=== PATIENT | female | born 1940 | race Caucasian/White ===

== ENCOUNTER → 2025-06-10 09:50 | Outpatient (REF) | payer OTHER, SELFPAY | LOC: RAD 09:50 | PROVIDERS: ATTENDING PHYSICIAN Internal Medicine Cardiovascular Disease; FAMILY PHYSICIAN Internal Medicine | DX: E11.9 Type 2 diabetes mellitus without complications (principal); R94.31 Abnormal electrocardiogram [ECG] [EKG] | CPT/HCPCS: 75574; Q9967 ==

== ENCOUNTER 2025-06-21 09:54 | Day surgery (SDC) | payer OTHER, SELFPAY ==
[2025-06-17 08:54] VITALS: BMI 23.6
[2025-06-17 09:53] LABS: Hematocrit 35.0 % (37.0-47.0); Hemoglobin 11.7 g/dL (12.0-16.0); Mean Corp Hgb Conc. 33.4 g/dL (33.0-37.0); Mean Corpuscular Volume 87.9 fL (81.0-99.0); Nucleated Red Blood Cells % 0 %; Platelet Count 326 10^3/uL (130-400); Red Cell Dist. Width 14.3 % (11.5-14.5)
[2025-06-17 10:10] LABS: ALT (SGPT) 26 U/L (0-35); AST (SGOT) 18 U/L (14-36); Albumin 4.3 g/dl (3.5-5.0); Alkaline Phosphatase 58 U/L (38-126); Blood Urea Nitrogen 22 mg/dl (7-17); Calcium 10.2 mg/dl (8.4-10.2); Carbon Dioxide 18 mmol/L (22-30); Chloride 105 mmol/L (98-107); Estimated Creatinine Clearance 38 ml/min; Glucose 127 mg/dl (70-99); Potassium 4.7 mmol/L (3.5-5.1); Sodium 134 mmol/L (135-145); Total Protein 6.9 g/dl (6.3-8.2); eGFR > 60.00
[2025-06-21 10:25] VITALS: BP 139/73
[2025-06-21 10:41] LABS: Glucose - Point of Care 107 mg/dl (70-99)
[2025-06-21 10:43] VITALS: BMI 23.4
[2025-06-21] MEDS: NSS 174 ML IV (10:44)
[2025-06-21 14:32] VITALS: BP 128/81
--- NOTE | 2025-06-21 14:34 | ITS.CL.PN ---
[facility] - Procedure Note
Procedure
Procedure Note:
CARDIAC CATHETERIZATION REPORT
Date of Procedure: 06/21/2025
Referring: Dr. Doron Crawford MD
Indication: coronary CT with concern for multivessel disease
PROCEDURE(S)
1. left heart catheterization
2. coronary angiography
ACCESS: 6F right radial artery (closure: radial band)
CATHETERS
1. 6F JR4
2. 6F JL3.5
MODERATE SEDATION: 25 minutes of moderate sedation was utilized. An independent medical numerical control operator was present to assist with and help manage the patient's level of consciousness and physiologic status.
HEMODYNAMIC DATA
LV 131/5 (EDP 11) mmHg
AO 128/67 (mean 89) mmHg
CORONARY ANGIOGRAPHY
Dominance: right
LM: normal
LAD: large vessel giving rise to a moderate caliber diagonal. There is a 40% stenosis in the mid-distal LAD and a 90% stenosis in the very distal apical LAD.
LCx: large vessel giving rise to a small OM1, small OM2, large OM3, and several small LPL branches. There is a segment of 40% stenosis in the distal LCx after OM3 and otherwise mild disease.
RCA: moderate caliber vessel giving rise to a small RPDA. There is diffuse mild disease.
CONCLUSIONS
1. Non-obstructive coronary artery disease in a right dominant system.
2. Normal LV filling pressure and no aortic stenosis
RECOMMENDATIONS
1. Secondary prevention of coronary artery disease
2. Workup and management of dyspnea on exertion not related to epicardial CAD
Copy to: Dr. Doron Crawford MD (needle straightener); Dr. Umang Rodriguez MD (PCP)
Signed: Dannie Jama MD, PhD
[2025-06-21 14:47] VITALS: BP 77/62
[2025-06-21 14:52] VITALS: BP 105/61
[2025-06-21 15:02] VITALS: BP 139/67
[2025-06-21 15:17] VITALS: BP 99/52
[2025-06-21] MEDS: NSS 1000 IV (15:20)
== END 2025-06-21 17:30 | disposition home or self-care (01) ==
LOC: CATH 09:54
PROVIDERS: ATTENDING PHYSICIAN Student in an Organized Health Care Education/Training Program; FAMILY PHYSICIAN Internal Medicine; OTHER PHYSICIAN Internal Medicine Cardiovascular Disease
DX: I25.10 Atherosclerotic heart disease of native coronary artery without angina pectoris (principal); I10 Essential (primary) hypertension; E78.5 Hyperlipidemia, unspecified; E11.9 Type 2 diabetes mellitus without complications; K21.9 Gastro-esophageal reflux disease without esophagitis; M19.90 Unspecified osteoarthritis, unspecified site; M31.6 Other giant cell arteritis; Z79.899 Other long term (current) drug therapy; Z79.01 Long term (current) use of anticoagulants; Z79.84 Long term (current) use of oral hypoglycemic drugs; Z79.85 Long-term (current) use of injectable non-insulin antidiabetic drugs
CPT/HCPCS: 36415; 80053; 82962; 85025; 93005; 93458; 99152; 99153; C1769; Q9967